=== PATIENT | male | born 1975 | race Caucasian/White ===

== ENCOUNTER 2020-11-25 15:55 | Emergency (ER) | payer OTHER, SELFPAY ==
--- NOTE | 2020-11-25 | ECG_ITS ---
Test Reason : PALPITATIONS Blood Pressure : / mmHG Vent. Rate : 070 BPM Atrial Rate : 070 BPM P-R Int : 164 ms QRS Dur : 098 ms QT Int : 394 ms P-R-T Axes : 069 020 033 degrees QTc Int : 425 ms Normal sinus rhythm Normal ECG No previous ECGs available Referred By: Generic ED Physician Electronically Signed By:GISELA PHILLIPS
--- NOTE | ~2020-11-25 | CT_ITS ---
EXAMINATION: CT HEAD WITHOUT CONTRAST CLINICAL INFORMATION: Headache COMPARISON: None TECHNIQUE: Contiguous axial imaging was performed from the skull base to vertex without intravenous administration of contrast. This CT examination was performed using dose optimization techniques as appropriate, variously including the following: *Automated exposure control *Adjustment of mA and/or kV according to patient size (this includes techniques or standardized protocols for targeted exams where dose is matched to indication/reason for exam; i.e. extremities or head) *Use of iterative reconstruction technique DLP: 778 mGy-cm FINDINGS: There is no evidence of acute intracranial hemorrhage or territorial infarction. No abnormal mass effect or midline shift is seen. Phillips to white matter differentiation is well preserved. No extra-axial fluid collections are identified. The ventricles are normal in size. There is no abnormal attenuation within the brain parenchyma. The osseous structures and soft tissues are normal. The mastoid air cells and visualized portions of the paranasal sinuses are well aerated. CT/CT head/brain wo con IMPRESSION: No acute intracranial pathology.
--- NOTE | ~2020-11-25 | XR_ITS ---
EXAMINATION: XR CHEST CLINICAL INFORMATION: Palpitations. COMPARISON: None TECHNIQUE: Frontal view of the chest was obtained. FINDINGS: No significant abnormality is noted involving the heart, lungs, mediastinum, bony thorax or soft tissues. XR/XR chest 1V IMPRESSION: Unremarkable chest examination.
[2020-11-25 15:59] VITALS: BP 148/81; PULSE 107; RESP 20; TEMP 37; O2SAT 96; BMI 34.0
--- NOTE | 2020-11-25 17:40 | ED_ITS ---
HPI - General Adult General Chief complaint: General Medical Stated complaint: multiple complaints Time Seen by Provider: 11/25/20 17:27 Source: patient Mode of arrival: ambulatory Limitations: no limitations History of Present Illness HPI narrative: Patient presents to ED for multiple complaints for 1 year. Patient states chest palpitation, headache ( right side with eye pain), numbness/tingling in hands/feet, cold sweats, decrease in appetite, increased tiredness, and decreased interest in usual activities for the past 1 year. Patient has had multiple PCP and ED visits to [facility] and [facility]. Patient state s he has had MRI of the brain and spine but just shows only cervical radiculopathy, patient has had normal head CT scans, chest x-rays, and lab works. Patient also been to 3 eye doctors who informed him his eyes were normal Patient was informed he might have anxiety induced but refused to accept. Patient states next week he has follow-up with Neurology and Cardiology for stress test. Related Data Allergies Allergy/AdvReac Type Severity Reaction Status Date / Time penicillin V Allergy Unknown Unknown Verified 11/25/20 16:10 naproxen [From Naprosyn] Allergy Nausea Verified 11/25/20 16:10 metoclopramide [From Reglan] AdvReac Irritable Verified 11/25/20 16:10 Review of Systems Review of Systems: Yes all other systems are reviewed and are negative Constitutional: Constitutional: Reports as per HPI, Reports no additional constitutional complaints, Reports difficulty sleeping, Reports fatigue and Reports headache(s) Eyes: Eyes: Reports as per HPI and Reports no additional eye complaints ENT: Reports system reviewed and no additional complaints, except as documented and Reports headache(s) Cardiovascular: Cardiovascular: Reports as per HPI and Reports no additional cardiovascular complaints Comments: Chest palpitation Respiratory: Respiratory: Reports as per HPI and Reports no additional respiratory complaints Gastrointestinal: Gastrointestinal: Reports as per HPI and Reports no additional gastrointestinal complaints Genitourinary: Genitourinary: Reports no additional male genitourinary complaints and Reports as per HPI Musculoskeletal: Musculoskeletal: Reports no additional musculoskeletal complaints and Reports as per HPI Neurologic: Reports system reviewed and no additional complaints, except as documented, Reports as per HPI and Reports headache(s) Comments: Tingling in hands and feet Psychiatric: Psychiatric: Reports no additional psychiatric complaints and Reports as per HPI Endocrine: Endocrine: Reports fatigue [facility] Past Medical History Medical History (Updated 11/26/20 @ 00:01 by Colleen Braga) HTN (hypertension) Social History Social History Alcohol intake: former Smoking Status: Never smoker Smoked in Last 30 Days: No Use of substances other than those prescribed or required for medical reasons: No Advance Directives: No Advance Directives Information Provided: No Physical Exam Vital Signs: Vital Signs: Last Vital Signs Temp 98.4 F 11/25/20 17:53 Pulse 68 11/25/20 21:17 Resp 18 11/25/20 21:17 BP 118/57 L 11/25/20 21:17 Pulse Ox 98 11/25/20 21:17 Body Mass Index 34.0 Const: General: cooperative, healthy appearing, comfortable, no acute distress, well developed, alert, awake, Physically active and anxious Orientation/consciousness: patient oriented x3 HENMT: Head: Yes normal to inspection, Yes No palpable skull fracture present, Yes normocephalic, Yes atraumatic, No abrasion, No Guerra's sign, No contusion, No cranial bruits, No hematoma, No laceration, No occipital foramen tenderness, No palpable skull fracture, No raccoon eyes, No scalp lesion, No scalp tenderness, No Temporal artery tenderness present and No periorbital ecchymosis Eyes: General: appearance normal, both eyes and all related structures Neck: Neck: Yes normal visual inspection, Yes full ROM, Yes no lymphadenopathy, Yes no meningeal signs, Yes trachea midline, Yes supple and No tender Chest: Chest palpation & inspection: normal inspection of the chest and normal palpation of entire chest wall Resp: Effort & Inspection: normal respiratory effort and able to speak in complete sentences Auscultation: clear to auscultation bilaterally Cardio: Jugular venous distension: no JVD Heart sounds: S1 normal heart sound present and S2 normal heart sound present GI: Inspection: Yes normal to inspection and No abdominal wall ecchymosis Palpation (GI): Soft to palpation, not firm, nontender, no guarding and not rigid : General: No CVA tenderness and Yes no CVA tenderness Back/Spine/Pelvis: Back: no CVA tenderness, No CVA tenderness and No back tenderness Skin: General skin exam: no rashes or lesions noted and elasticity normal Neuro: Other: Negative slurred speech. Negative facial droop. Negative pronator drift. All extremities equal strength and 5+. Normal gait. Negative Romberg. Dlsklp-[id number]-[id number] and rapid hand movement test intact. Negative nystagmus General: patient oriented x3, no meningeal signs and CN's II-XI intact bilaterally Cranial nerves: Yes CN's II-XII intact bilaterally Extrem: General: Yes normal to inspection and Yes full ROM Psych: Appearance: grossly normal, well kempt and not disheveled Course Course Course Narrative: History physical exam indicate anxiety. Not suspecting cardiac on stroke etiology. Exam is intact. Negative for neuro deficit. Patient has been having symptoms for 1 year. Not suspecting PE. Patient's has no risk factors. Patient denies recent surgery, recent long travel, estrogen pill use, recent trauma, calf pain, swelling of legs, coughing up blood, or chest pain on inspiration. Will request labs and imaging from previous [facility] and [facility] visits. Reevaluation(s) Reevaluation #1: Patient's ED visit at [facility] on the 06 of October of this year shows patient presented with similar complaints of headache, chest palpitation, numbness/tingling. Patient had a normal head CT scan at that visit. Also patient's EKG was normal and had 2-troponins. Patient was also at [facility] ER yesterday but walked out before his results came back. I reviewed lab work [facility] and Patient also had normal labs including a negative troponin, normal CBC, normal chemistry, normal EKG. Reevaluation #2: He patient's EKG normal and chest x-ray. Patient's troponin negative. Magnesium normal. CPK slightly elevated. Head CT was ordered due to insistence of patient's . Patient states having a right-sided headache for 1 year and presently does no indication for head CT due to neuro exam being intact and patient recently having a normal head CT this past October in [facility], but due to insistence of was talking patient's head CT scan was ordered. Patient was placed on oxygen for the right-sided headache and resolved. Possible patient have cluster headache. Reevaluation #3: Patient head CT scan came back normal. Right eye 10nometry pressure was 16. Left eye pressure 19. Most likely patient's symptoms are due to anxiety. TSH level normal Medical Decision Making MDM Narrative Medical decision making narrative: Anxiety. Palpitations. Cluster headache Lab Data Result diagrams: 11/25/20 18:09 11/25/20 18:09 Labs: Lab Results 11/25/20 11/25/20 11/25/20 Range/Units 18:09 18:09 18:09 WBC 7.1 (4.8-10.8) X10*3/uL RBC 5.08 (4.60-5.80) X10*6/uL Hgb 15.1 (14.0-18.0) g/dl Hct 43.7 (42-52) % MCV 86.0 (80-98) fL MCH 29.7 (27.0-33.0) pg MCHC 34.6 (31.0-36.0) g/dl RDW 12.8 (11.0-16.0) % Plt Count 216 (160-400) X10*3/uL MPV 10.8 (9.4-12.4) fL Immature Gran % (Auto) 0.1 (0.0-0.4) % Neut % (Auto) 67.7 (45-73) % Lymph % (Auto) 23.5 (20-40) % Izard % (Auto) 7.5 (2-11) % Eos % (Auto) 0.8 (0-4) % Baso % (Auto) 0.4 (0-2) % Lymph # (Auto) 1.7 (1.2-4.9) X10*3/uL Izard # (Auto) 0.5 (0.1-1.2) X10*3/uL Eos # (Auto) 0.1 (0.0-0.4) X10*3/uL Baso # (Auto) 0.0 (0.0-0.2) X10*3/uL Abs Immat Gran (auto) 0.01 (0.00-0.03) X10*3/uL Absolute Neuts (auto) 4.8 (2.0-8.3) X10*3/uL Absolute Nucleated RBC 0.000 (0.0-0.012) X10*3/uL Nucleated RBC % (auto) 0.0 (0.0-0.2) /100WBC PT (10.8-13.0) SEC INR (0.9-1.1) APTT (24.1-38.0) SEC Sodium 140 (135-145) mmol/L Potassium 4.1 (3.3-5.1) mmol/L Chloride 104 (96-108) mmol/L Carbon Dioxide 24 (22-29) mmol/L Anion Gap 16 (12-20) BUN 16 (9-16) mg/dL Creatinine 0.99 (0.5-1.4) mg/dL Estim Creat Clear Calc 114.5 Estimated GFR > 60 Random Glucose 102 (60-115) mg/dL Calcium 9.6 (8.4-10.2) mg/dL Magnesium 2.0 (1.6-2.6) mg/dL Total Bilirubin 0.8 (0.0-1.0) mg/dL AST 39 H (5-37) U/L ALT 84 H (0-40) U/L Alkaline Phosphatase 69 (39-117) U/L Total Creatine Kinase 300 H (38-174) U/L Troponin I High Sens < 3.5 (<3.5-35.0) ng/L Total Protein 6.9 (6.5-8.0) g/dL Albumin 4.5 (3.5-5.0) g/dL TSH 1.05 (0.32-4.0) uIU/mL 11/25/20 Range/Units 19:02 WBC (4.8-10.8) X10*3/uL RBC (4.60-5.80) X10*6/uL Hgb (14.0-18.0) g/dl Hct (42-52) % MCV (80-98) fL MCH (27.0-33.0) pg MCHC (31.0-36.0) g/dl RDW (11.0-16.0) % Plt Count (160-400) X10*3/uL MPV (9.4-12.4) fL Immature Gran % (Auto) (0.0-0.4) % Neut % (Auto) (45-73) % Lymph % (Auto) (20-40) % Izard % (Auto) (2-11) % Eos % (Auto) (0-4) % Baso % (Auto) (0-2) % Lymph # (Auto) (1.2-4.9) X10*3/uL Izard # (Auto) (0.1-1.2) X10*3/uL Eos # (Auto) (0.0-0.4) X10*3/uL Baso # (Auto) (0.0-0.2) X10*3/uL Abs Immat Gran (auto) (0.00-0.03) X10*3/uL Absolute Neuts (auto) (2.0-8.3) X10*3/uL Absolute Nucleated RBC (0.0-0.012) X10*3/uL Nucleated RBC % (auto) (0.0-0.2) /100WBC PT 12.6 (10.8-13.0) SEC INR 1.1 (0.9-1.1) APTT 36.8 (24.1-38.0) SEC Sodium (135-145) mmol/L Potassium (3.3-5.1) mmol/L Chloride (96-108) mmol/L Carbon Dioxide (22-29) mmol/L Anion Gap (12-20) BUN (9-16) mg/dL Creatinine (0.5-1.4) mg/dL Estim Creat Clear Calc Estimated GFR Random Glucose (60-115) mg/dL Calcium (8.4-10.2) mg/dL Magnesium (1.6-2.6) mg/dL Total Bilirubin (0.0-1.0) mg/dL AST (5-37) U/L ALT (0-40) U/L Alkaline Phosphatase (39-117) U/L Total Creatine Kinase (38-174) U/L Troponin I High Sens (<3.5-35.0) ng/L Total Protein (6.5-8.0) g/dL Albumin (3.5-5.0) g/dL TSH (0.32-4.0) uIU/mL ECG Data Interpretation: , sinus rhythm. Normal EKG. Negative STEMI. Ventricular rate 70. TN interval was before. QRS 98. QTC 425 Discharge Plan Discharge Clinical Impression: Cluster headache, Heart palpitations, Paresthesia Patient Disposition: Home, Self-Care Instructions: Heart Palpitations (ED), Cluster Headache (ED), Acute Headache (ED), Paresthesia (ED) Additional Instructions: Return to the ED immediately for passing out, crushing chest pain, dizziness, loss of vision, paralysis of extremity, chest pain on inspiration, swelling of lower extremities, calf pain, coughing up blood, fever, chills, any other concerning symptoms. Please keep your follow-up appointments with neurology and digital media sales consultant. Interventions: ED Discharge Assessment Last Done: 11/25/20 22:34 Discharge Date/Time: 11/25/20 21:35 Print Language: Georgian
[2020-11-25 17:53] VITALS: BP 95/52; PULSE 79; RESP 12; TEMP 36.9; O2SAT 95
[2020-11-25 18:31] LABS: MANUAL DIFF FLAG NO
[2020-11-25 18:33] LABS: Basophils Percent Auto 0.4 % (0-2); Eosinophils Absolute Auto 0.1 X10*3/uL (0.0-0.4); Eosinophils Percent Auto 0.8 % (0-4); Hematocrit 43.7 % (42-52); Hemoglobin 15.1 g/dl (14.0-18.0); Imm Gran Abs Auto 0.01 X10*3/uL (0.00-0.03); Imm Gran Pct Auto 0.1 % (0.0-0.4); Lymphocytes Absolute Auto 1.7 X10*3/uL (1.2-4.9); Lymphocytes Percent Auto 23.5 % (20-40); Mean Corpuscular HGB Conc 34.6 g/dl (31.0-36.0); Mean Corpuscular Hemoglobin 29.7 pg (27.0-33.0); Mean Platelet Volume 10.8 fL (9.4-12.4); Monocytes Absolute Auto 0.5 X10*3/uL (0.1-1.2); Monocytes Percent Auto 7.5 % (2-11); Neutrophils Absolute Auto 4.8 X10*3/uL (2.0-8.3); Neutrophils Percent Auto 67.7 % (45-73); Platelet Count 216 X10*3/uL (160-400); Red Blood Count 5.08 X10*6/uL (4.60-5.80); Red Cell Distribution Width 12.8 % (11.0-16.0); White Blood Count 7.1 X10*3/uL (4.8-10.8)
[2020-11-25 18:51] LABS: Alanine Aminotransferase 84 U/L (0-40); Albumin Level 4.5 g/dL (3.5-5.0); Alkaline Phosphatase 69 U/L (39-117); Anion Gap 16 (12-20); Aspartate Amino Transferase 39 U/L (5-37); Bilirubin Total 0.8 mg/dL (0.0-1.0); Blood Urea Nitrogen 16 mg/dL (9-16); Calcium 9.6 mg/dL (8.4-10.2); Carbon Dioxide 24 mmol/L (22-29); Chloride 104 mmol/L (96-108); Creatinine Clr Calc Pharmacy 114.5; Estimated Glomerular Filt Rate > 60; Glucose Random 102 mg/dL (60-115); Potassium 4.1 mmol/L (3.3-5.1); Sodium 140 mmol/L (135-145); Total Protein 6.9 g/dL (6.5-8.0)
[2020-11-25 18:57] LABS: Troponin-I High Sensitivity < 3.5 ng/L (<3.5-35.0)
[2020-11-25 19:21] LABS: INTERNATIONAL NORM RATIO 1.1 (0.9-1.1); Prothrombin Time 12.6 SEC (10.8-13.0)
[2020-11-25 19:23] LABS: Partial Thromboplastin Time 36.8 SEC (24.1-38.0)
[2020-11-25 20:24] VITALS: BP 97/58; PULSE 67; RESP 18; O2SAT 95
[2020-11-25 20:25] LABS: Thyroid Stimulating Hormone 1.05 uIU/mL (0.32-4.0)
[2020-11-25 21:17] VITALS: BP 118/57; PULSE 68; RESP 18; O2SAT 98
== END 2020-11-25 21:35 | disposition home or self-care (01) ==
PROVIDERS: Physician Assistant; Emergency Provider Emergency Medicine Emergency Medical Services; PCP Internal Medicine
DX: R51.9 Headache, unspecified (principal); R00.2 Palpitations; R20.2 Paresthesia of skin; H57.11 Ocular pain, right eye; Z79.899 Other long term (current) drug therapy
CPT/HCPCS: 36415; 70450; 71045; 80053; 82550; 83735; 84443; 84484; 85025; 85610; 85730; 93005; 99284

== ENCOUNTER → 2021-07-09 10:54 | Outpatient (BNVA) | payer OTHER, SELFPAY | PROVIDERS: PCP Internal Medicine; Visit Provider Internal Medicine | DX: G89.29 Other chronic pain (principal); R51.9 Headache, unspecified | CPT/HCPCS: 99202 ==

== ENCOUNTER 2021-09-16 14:35 | Outpatient (REF) | payer OTHER, SELFPAY ==
[2021-09-16 15:38] LABS: COVID-19 Test Negative (Negative)
== END 2021-09-16 14:36 | disposition home or self-care (01) ==
LOC: HO.LAB 14:35
PROVIDERS: Visit Provider Internal Medicine
DX: Z20.822 Contact with and (suspected) exposure to COVID-19 (principal)
CPT/HCPCS: 87635; C9803

== ENCOUNTER → 2022-02-11 10:40 | Outpatient (BNVA) | payer OTHER, SELFPAY | PROVIDERS: PCP Internal Medicine; Visit Provider Internal Medicine Rheumatology | DX: G89.29 Other chronic pain (principal); R51.9 Headache, unspecified; M25.50 Pain in unspecified joint; R53.83 Other fatigue | CPT/HCPCS: 99212 ==

== ENCOUNTER → 2022-06-09 08:45 | Outpatient (BNVA) | payer OTHER, SELFPAY | PROVIDERS: PCP Internal Medicine; Visit Provider Psychiatry & Neurology Neurology | DX: R51.9 Headache, unspecified (principal); G89.29 Other chronic pain; F41.9 Anxiety disorder, unspecified; F32.A Depression, unspecified; G47.00 Insomnia, unspecified; G47.10 Hypersomnia, unspecified; M47.812 Spondylosis without myelopathy or radiculopathy, cervical region; R53.83 Other fatigue | CPT/HCPCS: 99202 ==

== ENCOUNTER 2022-08-07 09:30 | Outpatient (REF) | payer OTHER, SELFPAY ==
[2022-08-07 10:13] LABS: COVID-19 Test Positive (Negative); IDNOW Serial# 16C4AD1C
== END 2022-08-07 09:31 | disposition home or self-care (01) ==
LOC: HO.LAB 09:30
PROVIDERS: Visit Provider Internal Medicine
DX: Z20.822 Contact with and (suspected) exposure to COVID-19 (principal)
CPT/HCPCS: 87635; C9803

== ENCOUNTER → 2022-12-18 12:47 | Outpatient (REF) | payer OTHER, SELFPAY | LOC: HO.SL 12:47 | PROVIDERS: PCP Internal Medicine; Visit Provider Psychiatry & Neurology Neurology | DX: G47.33 Obstructive sleep apnea (adult) (pediatric) (principal); G47.00 Insomnia, unspecified; G47.10 Hypersomnia, unspecified; R53.83 Other fatigue | CPT/HCPCS: 95806 ==

== ENCOUNTER 2023-06-19 07:23 | Outpatient (AMB) | payer OTHER, SELFPAY ==
--- NOTE | 2023-06-19 07:30 | MHC.OFFVIS ---
Intake Vital Signs 06/19/23 07:36 Weight 231 lb 6 oz BP 128/62 Blood Pressure Location Rt brachial Position Sitting Pulse 81 Pulse Source Pulse Oximeter Pulse Oximetry (%) 97 Oxygen Delivery Method Room Air Intake Visit Reasons: follow up possible seizures-lvm Intake Note: F/U possible seizure Line Up Examiner Required: No Allergies prochlorperazine [From Compazine] Allergy (Intermediate, Verified 06/19/23 07:30) anxiety naproxen [From Naprosyn] Allergy (Verified 06/19/23 07:30) Nausea metoclopramide [From Reglan] Adverse Reaction (Verified 06/19/23 07:30) Irritable topiramate Adverse Reaction (Severe, Uncoded 06/19/23 08:08) anger Medication List - Last Reconciled 06/19/23 by Shey Marion MD No Known Home Meds HPI HPI Comments History of Present Illness Details 48y/o male comes for follow up for multiple complaints. He is concerned about his constant headaches, head pressure , neck pain, fatigue. Home sleep test was c/w mild sleep apnea AHI was 7 and oxygen greta was 85%.He did not start CPAP yet. He recently had an emergency gall bladder surgery and stopped all his supplements. 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 He tried oxygen therapy in the past. His sleep has improved . But still has excessive daytime sleepiness. No seizure like epsiode .- he tried gabapentin topiramate amitriptyline remeron Previous history- On Aug 2020 he woke up with a severe headache and went to ER. He was told it was related to anxiety and stress. He had CT scan - brain normal . He was given some medications and discharged. His headaches did not improve , he went to ER 18 times in 2020, saw Dr. Araujo , saw scrap worker, senior software project manager, ID specialists since then with no diagnosis. His main complaints , head pressure, headaches , fatigue, polyarthralgia, Brain fog, insomnia etc. He describes the headaches as head pressure with retroorbital pain, frontal and bitemporal pain . He has shashi eye pain - has been to [facility] 6 times. No light or noise sensitivity. No nausea with headaches.He takes ibuprofen( 1/week ) ,tylenol 1/week and daily claritin D. He had MRI brain with evan normal- chiari 1 malformation , Ct head normal. He reports generalized tremors intermittently and says he rosenthal shad 6 episodes in last 2 years - where he loses awareness.He has never been to ER. The longest episode was 10seconds. 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 He was seen by Dr. MARIE for chiari 1 malformation . [facility] Medical History (Updated 06/19/23 @ 08:05 by Shey Marion MD) Obstructive sleep apnea Cervical spondylosis Depression Chronic headache HTN (hypertension) Surgical History (Updated 06/19/23 @ 07:33 by Niharika Hoskins CMA) Hx of cholecystectomy H/O shoulder surgery History of ankle surgery H/O wrist surgery Family History Father HTN (hypertension) CAD (coronary artery disease) COPD (chronic obstructive pulmonary disease) Emphysema lung Mother HTN (hypertension) Social History (Updated 06/19/23 @ 07:35 by Niharika Hoskins CMA) Household Members: Spouse Housing: House Are you a primary day care teacher to a significant other at home: No Do you presently have visiting nurse or other home services: No 75 years or older and lives alone: No Alcohol intake: never Patient Tobacco Use Status: Never used Tobacco e-Cigarette/Vaping Use: Never Used service: No Current occupational status: employed Current occupation: DRUG ABUSE PROGRAM COORDINATOR Physical Exam Vital Signs: Last Vital Signs Pulse 81 06/19/23 07:36 BP 128/62 06/19/23 07:36 Pulse Ox 97 06/19/23 07:36 Oxygen Delivery Method Room Air 06/19/23 07:36 Const General: cooperative, healthy appearing and in distress Nutritional Appearance: overweight Orientation/consciousness: patient oriented x3 HEENT Head: Yes normal to inspection, Yes normocephalic and Yes atraumatic Throat: Yes other (mallampatti grade 3) Eyes Pupils: Equal, round and reactive pupils present Neck Neck: Yes no meningeal signs Neuro General: patient oriented x3, gait normal, tone normal, moves all extremities, no meningeal signs and no focal motor deficits Cranial nerves: Yes CN's II-XII intact bilaterally, Yes Facial sensation intact/muscles of mastication intact, Yes Equal, round and reactive pupils present, Yes Bilaterally intact EOM present, Yes Nystagmus not present, Yes Normal facial strength present, No Midline tongue present, Yes Symmetric palate elevation present, Yes Ability to bilaterally rotate head present and Yes Ability to bilaterally elevate shoulders present Cognition (Neuro): normal cognition Gait exam (Neuro): Normal gait present Motor exam (neuro): 5/5 motor strength present throughout Deep tendon reflexes (DTR's): Right triceps reflex intensity grade: 1+, Left triceps reflex intensity grade: 1+, Rt Biceps (C5, C6): 1+, Left biceps reflex intensity grade: 1+, Right brachioradialis reflex intensity grade: 1+, Left brachioradialis reflex intensity grade: 1+, Right patellar reflex intensity grade: 1+ and Left patellar reflex intensity grade: 1+ Coordination: [id number] test normal Psych Affect: Anxious affect present Assessment & Plan Assessment & Plan (1) Chronic headache: Code(s): R51.9 - Headache, unspecified; G89.29 - Other chronic pain (2) Anxiety: Code(s): F41.9 - Anxiety disorder, unspecified (3) Depression: Code(s): F32.A - Depression, unspecified (4) Hypersomnia: Code(s): G47.10 - Hypersomnia, unspecified (5) Cervical spondylosis: Code(s): M47.812 - Spondylosis without myelopathy or radiculopathy, cervical region (6) Obstructive sleep apnea: Code(s): G47.33 - Obstructive sleep apnea (adult) (pediatric) Plan Patient has elevated LFTS so i will avoid depakote I will try him on citalopram 10mg qd for anxiety. Magnesium 400mg bedtime Vit B 2 400mg qam F/u with Dr. Cervantes SLeep hygiene discussed. Medications: New citalopram 10 mg PO DAILY 30 tabs 3RF Coding Level of Care Code Est Pt Level 4 (18968) Diagnoses Chronic headache R51.9; G89.29 Anxiety F41.9 Depression F32.A Hypersomnia G47.10 Cervical spondylosis M47.812 Obstructive sleep apnea G47.33
[2023-06-19 07:36] VITALS: BP 128/62; PULSE 81; O2SAT 97
== END 2023-06-19 08:12 | disposition home or self-care (01) ==
PROVIDERS: Visit Provider Psychiatry & Neurology Neurology
DX: R51.9 Headache, unspecified (principal); G89.29 Other chronic pain; F41.9 Anxiety disorder, unspecified; F32.A Depression, unspecified; G47.10 Hypersomnia, unspecified; M47.812 Spondylosis without myelopathy or radiculopathy, cervical region; G47.33 Obstructive sleep apnea (adult) (pediatric)
CPT/HCPCS: 99214

== ENCOUNTER → 2023-06-19 07:23 | Outpatient (BNVA) | payer OTHER, SELFPAY | PROVIDERS: Visit Provider Psychiatry & Neurology Neurology | DX: R51.9 Headache, unspecified (principal); G89.29 Other chronic pain; F41.9 Anxiety disorder, unspecified; F32.A Depression, unspecified; G47.10 Hypersomnia, unspecified; M47.812 Spondylosis without myelopathy or radiculopathy, cervical region; G47.33 Obstructive sleep apnea (adult) (pediatric) | CPT/HCPCS: 99212 ==